=== PATIENT | female | born 1970 | race Caucasian/White ===

== ENCOUNTER 2016-09-26 16:44 | Emergency (ER) | payer OTHER ==
[2016-09-26] MEDS ORDERED: IPRATROPIUM-ALBUTEROL 3 ML NEB INHALATION STA ×2 (17:17→18:46)
--- NOTE | 2016-09-26 17:20 | ED ---
URI HPI - General Chief Complaint: Upper Respiratory Infection Stated Complaint: difficulty breathing Time Seen by Provider: 09/26/16 16:59 Source: patient, RN notes reviewed Mode of arrival: ambulatory Limitations: no limitations - History of Present Illness Initial Comments: Patient is a 46-year-old female presents to the emergency room for evaluation of coughing and congestion. Patient states she has a history of seasonal ALLERGIES and asthma. Patient states yesterday she began feeling sluggish. Patient states she developed a productive cough. Patient states every time she coughs she feels short of breath. Patient denies smoking. Patient states that she uses an inhaler which helps improve her symptoms. Patient denies any fevers or chills. Patient denies receiving her influenza vaccine this year. Patient denies chest pain. Patient denies headache, throat pain, ear pain. Patient denies nausea or vomiting. - Related Data Home Medications Medication Instructions Recorded Confirmed Hydrochlorothiazide 25 mg PO DAILY 09/02/15 09/26/16 Albuterol Inhaler [Ventolin Hfa 2 puff INHALATION RT-QID PRN 01/31/16 09/26/16 Inhaler] Ergocalciferol (Vitamin D2) 50,000 unit PO Q30D 01/31/16 09/26/16 [Drisdol] Garcinia 2 tab PO DAILY 01/31/16 09/26/16 Lisinopril [Zestril] 20 mg PO DAILY 09/26/16 09/26/16 Previous Rx's Medication Instructions Recorded predniSONE 40 mg PO DAILY 4 Days 09/26/16 Allergies Allergy/AdvReac Type Severity Reaction Status Date / Time No Known Allergies Allergy Verified 09/26/16 17:12 Review of Systems ROS Statement: Those systems with pertinent positive or pertinent negative responses have been documented in the HPI. ROS Other: All systems not noted in ROS Statement are negative. Past Medical History Past Medical History: Asthma, Chest Pain / Angina, Hypertension, Osteoarthritis (OA) Additional Past Medical History / Comment(s): occ "flutter" in chest, urinary leakage, History of Any Multi-Drug Resistant Organisms: None Reported Past Surgical History: Appendectomy, Hysterectomy Additional Past Surgical History / Comment(s): D&C x 2 Past Anesthesia/Blood Transfusion Reactions: Motion Sickness, Postoperative Nausea & Vomiting (PONV) Past Psychological History: Anxiety Smoking Status: Former smoker Past Alcohol Use History: Occasional Additional Past Alcohol Use History / Comment(s): quit smoking 20yrs ago,smoked for 8 yrs-< 1PPD Past Drug Use History: Marijuana - Past Family History Mother Family Medical History: No Reported History General Exam - General Exam Comments Initial Comments: Sitting in exam room in no acute distress. Limitations: no limitations General appearance: alert, in no apparent distress Head exam: Present: atraumatic, normocephalic, normal inspection Eye exam: Present: normal appearance ENT exam: Present: normal exam Neck exam: Present: normal inspection Respiratory exam: Present: wheezes (Diffuse wheezing). Absent: respiratory distress Cardiovascular Exam: Present: regular rate, normal rhythm, normal heart sounds Extremities exam: Present: normal inspection Back exam: Present: normal inspection Neurological exam: Present: alert, oriented X3, CN II-XII intact, normal gait Psychiatric exam: Present: normal affect, normal mood Skin exam: Present: warm, dry, intact, normal color. Absent: rash Course Vital Signs 09/26/16 09/26/16 09/26/16 16:46 17:31 17:37 Temperature 99.0 F Pulse Rate 98 96 98 Respiratory 22 Rate Blood Pressure 171/91 O2 Sat by Pulse 100 Oximetry 09/26/16 09/26/16 09/26/16 19:00 19:11 19:18 Temperature 98.4 F Pulse Rate 92 96 79 Respiratory 16 Rate Blood Pressure 120/70 O2 Sat by Pulse 98 Oximetry Medical Decision Making - Medical Decision Making Patient is a 46-year-old female presents to the emergency room for evaluation of cough and congestion. Patient states she is feeling better after breathing treatment given. Chest x-ray shows no acute findings. Influenza negative. Patient was wheezing on exam. We'll send patient home on prednisone and advised her to follow-up with her primary care provider in 24-48 hours for reevaluation. Patient states she understands everything that was discussed with her. Return parameters discussed. - Lab Data Lab Results 09/26/16 Range/Units 17:14 Influenza Type A RNA Not Detected (Not Detectd) Influenza Type B (PCR) Not Detected (Not Detectd) - Radiology Data Radiology results: report reviewed, image reviewed Disposition Clinical Impression: Upper respiratory infection Disposition: HOME SELF-CARE Condition: Good Instructions: Upper Respiratory Infection (ED) Additional Instructions: Take medications as directed. Please follow up with primary care provider in 1- 2 days. If any new symptom arises or symptoms worsen, return to ER as soon as possible. Prescriptions: predniSONE 40 mg PO DAILY 4 Days Referrals: Rinku Hernandez MD [Primary Care Provider] - 1-2 days Time of Disposition: 18:41
--- NOTE | 2016-09-26 17:55 | XR ---
EXAMINATION TYPE: XR chest 2V DATE OF EXAM: 09/26/2016 5:50 PM COMPARISON: NONE HISTORY: Pain TECHNIQUE: Frontal and lateral views of the chest are obtained. FINDINGS: There is no focal air space opacity, pleural effusion, or pneumothorax seen. The cardiac silhouette size is within normal limits. The osseous structures are intact. IMPRESSION: No acute cardiopulmonary process.
[2016-09-26] MEDS ORDERED: predniSONE 20 MG TAB PO STA (18:42)
[2016-09-26 19:20] VITALS: BP 120/70; PULSE 79; RESP 16; TEMP 98.4
== END 2016-09-26 19:18 | disposition home or self-care (01) ==
LOC: EC 16:44
DX: J06.9 Acute upper respiratory infection, unspecified (principal); R06.02 Shortness of breath; I10 Essential (primary) hypertension; Z87.891 Personal history of nicotine dependence; Z79.899 Other long term (current) drug therapy
CPT/HCPCS: 94640 ×2; 87502; 71020; 99284; J7512

== ENCOUNTER → 2017-07-20 | Outpatient (CLI) | payer OTHER | END | disposition home or self-care (01) | LOC: LABWHC1 14:02 | PROVIDERS: ATTEND Family Medicine | DX: R07.9 Chest pain, unspecified (principal) | CPT/HCPCS: 36415; 85379 ==

== ENCOUNTER → 2018-01-15 | Outpatient (CLI) | payer OTHER ==
--- NOTE | 2018-01-15 12:09 | US ---
EXAMINATION TYPE: US thyroid st tissue head/neck DATE OF EXAM: 01/15/2018 COMPARISON: NONE CLINICAL HISTORY: E07.9 Enlarged Thyroid. Enlarged thyroid per patient's physician, dysphagia GLAND SIZE: Right Lobe: 5.2 x 1.5 x 2.0 cm Overall Parenchyma: homogenous Left Lobe: 4.9 x 1.5 x 1.6 cm Overall Parenchyma: homogeneous Isthmus Thickness: 0.4 cm NODULES RIGHT: # of nodules measured on right: 2 1. 0.6 X 0.4 x 0.7 cm hypoechoic mixed nodule at the upper pole with well-defined margins. This nod ule is wider than tall and shows no intranodular vascularity. Prior size: no previous 2. 0.4 X 0.3 x 0.5 cm hypoechoic mixed nodule at the mid pole with well-defined margins. This nodule is wider than tall and shows no intranodular vascularity. Prior size: no previous LEFT: # of nodules measured on left: 0 ISTHMUS: # of nodules measured in the isthmus: 1 1. 1.2 X 0.7 x 1.3 cm hypoechoic mixed nodule with well-defined margins. This nodule is wider than tall and shows no intranodular vascularity. Prior size: no previous Bilateral neck scanned, no evidence of lymphadenopathy. IMPRESSION: Subcentimeter right thyroid nodules and 1.3 cm isthmic thyroid nodule emanating overall enlarged mult inodular goiter. Surveillance is recommended, particularly for the isthmic nodule as this approaches size criteria for percutaneous fine-needle aspiration.
== END | disposition home or self-care (01) ==
LOC: RADUSWWP 11:02
PROVIDERS: ATTEND Family Medicine
DX: E04.2 Nontoxic multinodular goiter (principal)
CPT/HCPCS: 76536

== ENCOUNTER → 2018-09-05 | Outpatient (CLI) | payer OTHER ==
--- NOTE | 2018-09-06 10:54 | MM ---
Reason for exam: screening (asymptomatic). Last mammogram was performed 3 years and 1 month ago. History: Took hormonal contraceptives for 10 years. Physical Findings: A clinical breast exam by your physician is recommended on an annual basis and results should be correlated with mammographic findings. MG Screening Mammo w CAD Bilateral CC and MLO view(s) were taken. Prior study comparison: August 04, 2015, bilateral MG screening mammo w CAD. January 11, 2012, [facility] DIGITAL LEFT BREAST MAMMOGRAM w/CAD. The breast tissue is heterogeneously dense. This may lower the sensitivity of mammography. There are two 3mm groups of calcifications in the central upper left breast at middle depth. These appear new. No suspicious abnormality in the right. ASSESSMENT: Incomplete: need additional imaging evaluation, BI-RAD 0 RECOMMENDATION: Special view mammogram of the left breast. [facility] will attempt to contact patient to return for supplemental views.
== END | disposition home or self-care (01) ==
LOC: RADMAMWWP 09:42
PROVIDERS: ATTEND Family Medicine
DX: Z12.31 Encounter for screening mammogram for malignant neoplasm of breast (principal)
CPT/HCPCS: 77067

== ENCOUNTER → 2018-09-12 | Outpatient (CLI) | payer OTHER ==
--- NOTE | 2018-09-13 08:49 | MM ---
Reason for exam: additional evaluation requested from abnormal screening. Last mammogram was performed less than 1 month ago. History: Took hormonal contraceptives for 10 years. Physical Findings: Nurse did not find any significant physical abnormalities on exam. MG Work Up Mamm w CAD LT CC with magnification, LM with magnification, and LM view(s) were taken of the left breast. Prior study comparison: September 05, 2018, bilateral MG screening mammo w CAD. August 04, 2015, bilateral MG screening mammo w CAD. The breast tissue is heterogeneously dense. This may lower the sensitivity of mammography. Finding: There are indetermediate heterogeneous, grouped/clustered calcifications in the middle position of the left breast, the more posterior group of calcifications layers on additional views. These results were verbally communicated with the patient and result sheet given to the patient on 09/12/18. ASSESSMENT: Suspicious, BI-RAD 4 RECOMMENDATION: Stereotactic core biopsy of the left breast. Called Dr. Hernandez with mammographic findings and has scheduled an appointment for the patient for 10/03/18 at 12:[address] Amos. Biopsy scheduled for 10/10/18. PRELIMINARY REPORT CALLED AND FAXED TO DR. AMOS ON 09/13/18.
== END | disposition home or self-care (01) ==
LOC: RADMAMWWP 14:54
PROVIDERS: ATTEND Family Medicine
DX: R92.8 Other abnormal and inconclusive findings on diagnostic imaging of breast (principal)
CPT/HCPCS: 77065

== ENCOUNTER → 2019-08-26 | Outpatient (CLI) | payer OTHER ==
--- NOTE | 2019-08-26 13:08 | XR ---
Abdomen HISTORY: Preop for UGI, recurrent UTI a gross hematuria, pain Retained contrast material is present within the colon. Lung bases are clear. Exam rescheduled by radiologist due to retained contrast.
== END | disposition home or self-care (01) ==
LOC: RADFLMAIN 09:22
PROVIDERS: ATTEND Family Medicine
DX: R10.84 Generalized abdominal pain (principal)
CPT/HCPCS: 74018

== ENCOUNTER 2019-09-02 20:53 | Emergency (ER) | payer OTHER ==
[2019-09-02] MEDS ORDERED: SODIUM CHLORIDE 0.9% 1,000 ML IV STA (23:07)
[2019-09-02] MEDS ORDERED: ASPIRIN 81 MG PO STA (23:07)
[2019-09-02 23:35] LABS: Appearance,Urine Clear (Clear); Bilirubin,Urine Negative (Negative); Blood,Urine Negative (Negative); Color,Urine Light Yellow; Glucose,Urine (UA) Negative (Negative); Ketones,Urine Negative (Negative); Protein,Urine Negative (Negative); Specific Gravity,Urine 1.005 (1.001-1.035); Urobilinogen,Urine <2.0 mg/dL (<2.0)
[2019-09-02 23:36] LABS: Leukocyte Esterase,Urine Negative (Negative); Nitrite,Urine Negative (Negative)
--- NOTE | 2019-09-02 23:37 | XR ---
EXAMINATION TYPE: XR chest 2V DATE OF EXAM: 09/02/2019 COMPARISON: 09/26/2016 HISTORY: Chest pain TECHNIQUE: FINDINGS: Heart and mediastinum are normal. Lungs are clear. Diaphragm is normal. Bony thorax appears normal. IMPRESSION: Normal chest. No change.
[2019-09-02] MEDS ORDERED: ACETAMINOPHEN TAB 325 MG TAB PO STA (23:49)
[2019-09-02 23:59] LABS: Basophils % (A) 0 %; Eosinophils # (A) 0.1 k/uL (0-0.7); Eosinophils % (A) 1 %; HCT 39.2 % (34.0-46.0); HGB 13.2 gm/dL (11.4-16.0); Lymphocytes # (A) 1.1 k/uL (1.0-4.8); Lymphocytes % (A) 11 %; MCH 30.5 pg (25.0-35.0); MCHC 33.6 g/dL (31.0-37.0); MCV 90.7 fL (80.0-100.0); Mean Platelet Volume 7.6; Monocytes # (A) 0.3 k/uL (0-1.0); Monocytes % (A) 3 %; Neutrophils # (A) 9.1 k/uL (1.3-7.7); Neutrophils % (A) 85 %; Platelet Count 255 k/uL (150-450); RBC 4.33 m/uL (3.80-5.40); RDW 13.1 % (11.5-15.5); WBC 10.7 k/uL (3.8-10.6)
--- NOTE | 2019-09-03 00:07 | ED ---
General Adult HPI - General Chief complaint: Abdominal Pain Stated complaint: chest & back pain Time Seen by Provider: 09/02/19 22:53 Source: patient, RN notes reviewed, old records reviewed Mode of arrival: ambulatory Limitations: no limitations - History of Present Illness Initial comments: 49-year-old female patient with past history significant for asthma, hypertension, presents in ED with chief complaint of chest pain. Patient reports that this morning she began experiencing substernal chest pain while she was at work. Reports this was a sharp pain. Does report that was slightly pleuritic in nature. Reports that at this time patient is pain free. Denies any shortness of breath this time. Patient has had recent evaluations for abdominal discomfort, hematuria, denies any acute complaints in regards that at this time. Denies any other complaints. Systemic: Pt denies fatigue, fever/chills, rash. Pt denies weakness, night sweats, weight loss. Neuro: Pt denies headache, visual disturbances, syncope or pre-syncope. HEENT: Pt denies ocular discharge or irritation, otalgia, rhinorrhea, pharyngitis or notable lymphadenopathy. Cardiopulmonary: Pt denies chest pain, SOB, heart palpitations, dyspnea on exertion. Abdominal/GI: Pt denies abdominal pain, n/v/d. : Pt denies dysuria, burning w/ urination, frequency/urgency. Denies new onset urinary or bowel incontinence. MSK: Pt denies myalgia, loss of strength or function in extremities. Neuro: Pt denies new onset weakness, paresthesias. - Related Data Home Medications Medication Instructions Recorded Confirmed Hydrochlorothiazide 25 mg PO DAILY 09/02/15 09/26/16 Albuterol Inhaler [Ventolin Hfa 2 puff INHALATION RT-QID PRN 01/31/16 09/26/16 Inhaler] Ergocalciferol (Vitamin D2) 50,000 unit PO Q30D 01/31/16 09/26/16 [Drisdol] Garcinia 2 tab PO DAILY 01/31/16 09/26/16 Lisinopril [Zestril] 20 mg PO DAILY 09/26/16 09/26/16 Previous Rx's Medication Instructions Recorded predniSONE [Deltasone] 40 mg PO DAILY 4 Days tab 09/26/16 Allergies Allergy/AdvReac Type Severity Reaction Status Date / Time No Known Allergies Allergy Verified 09/26/16 17:12 Review of Systems ROS Statement: Those systems with pertinent positive or pertinent negative responses have been documented in the HPI. ROS Other: All systems not noted in ROS Statement are negative. Past Medical History Past Medical History: Asthma, Chest Pain / Angina, Hypertension, Osteoarthritis (OA) Additional Past Medical History / Comment(s): occ "flutter" in chest, urinary leakage, History of Any Multi-Drug Resistant Organisms: None Reported Past Surgical History: Appendectomy, Hysterectomy Additional Past Surgical History / Comment(s): D&C x 2 Past Anesthesia/Blood Transfusion Reactions: Motion Sickness, Postoperative Nausea & Vomiting (PONV) Past Psychological History: Anxiety Smoking Status: Former smoker Past Alcohol Use History: Occasional Past Drug Use History: Marijuana - Past Family History Mother Family Medical History: No Reported History General Exam - General Exam Comments Initial Comments: Constitutional: NAD, AOX3, Pt has pleasant affect. HEENT: NC/AT, trachea midline, neck supple, no lymphadenopathy. Posterior pharynx non erythematous, without exudates. External ears appear normal, without discharge. Mucous membranes moist. Eyes PERRLA, EOM intact. There is no scleral icterus. No pallor noted. Cardiopulmonary: RRR, no murmurs, rubs or gallops, no JVD noted. Lungs CTAB in a nterior and posterior medina. No peripheral edema. Abdominal exam: Abdomen soft and non-distended. Abdomen non-tender to palpation in all 4 quadrants. Bowel sounds active in LLQ. No hepatosplenomegaly. No ecchymosis Neuro: CN II-XII grossly intact. No nuchal rigidity. No raccon eyes, no jenkins sign, no hemotympanum. No cervical spinal tenderness. MSK: No posterior calf tenderness bilaterally, homans sign negative bilaterally. Posterior tibialis and radial pulse +2 bilaterally. Sensation intact in upper and lower extremities. Full active ROM in upper and lower extremities, 5/5 stregnth. Limitations: no limitations Course Vital Signs 09/02/19 09/03/19 09/03/19 21:01 00:41 01:24 Temperature 99.7 F H Pulse Rate 89 76 75 Respiratory 18 16 18 Rate Blood Pressure 138/88 141/94 129/88 O2 Sat by Pulse 98 98 96 Oximetry Medical Decision Making - Medical Decision Making 49-year-old female patient with past history significant for asthma, hypertension, presents in ED with chief complaint of chest pain. Patient reports that this morning she began experiencing substernal chest pain while she was at work. Reports this was a sharp pain. Does report that was slightly pleuritic in nature. Reports that at this time patient is pain free. Denies any shortness of breath this time. Patient has had recent evaluations for abdominal discomfort, hematuria, denies any acute complaints in regards that at this time. Denies any other complaints. Patient will signs are stable, afebrile. Physical exam demonstrate acute pathology. Laboratory investigations revealed mild leukocytosis of 10.7. D-dimer is elevated. Troponin negative. Urine negative. Influenza negative. EKG displayed S1 Q3 T3. On repeat evaluation patient reports now that her discomfort she is experiencing was more epigastric region. CT chest angiography for PE was obtained. Displayed no acute process. Thoracic aorta is intact. Patient does report that she has an appointment with a dry cleaning counter clerk on for her abdominal complaints which are somewhat chronic in nature. Patient recently had a negative CT abdomen and pelvis without contrast on 08/25. Patient is asymptomatic at time of discharge. Patient discharged to follow up with primary care provider tomorrow and will return to ER if condition worsens. Case discussed with Dr. Valiente. - Lab Data Result diagrams: 09/02/19 23:37 09/02/19 23:37 Lab Results 09/02/19 09/02/19 09/02/19 Range/Units 22:45 23:37 23:37 WBC 10.7 H (3.8-10.6) k/uL RBC 4.33 (3.80-5.40) m/uL Hgb 13.2 (11.4-16.0) gm/dL Hct 39.2 (34.0-46.0) % MCV 90.7 (80.0-100.0) fL MCH 30.5 (25.0-35.0) pg MCHC 33.6 (31.0-37.0) g/dL RDW 13.1 (11.5-15.5) % Plt Count 255 (150-450) k/uL Neutrophils % 85 % Lymphocytes % 11 % Monocytes % 3 % Eosinophils % 1 % Basophils % 0 % Neutrophils # 9.1 H (1.3-7.7) k/uL Lymphocytes # 1.1 (1.0-4.8) k/uL Monocytes # 0.3 (0-1.0) k/uL Eosinophils # 0.1 (0-0.7) k/uL Basophils # 0.0 (0-0.2) k/uL PT (9.0-12.0) sec INR (<1.2) APTT (22.0-30.0) sec D-Dimer (<0.60) mg/L FEU Sodium 135 L (137-145) mmol/L Potassium 3.5 (3.5-5.1) mmol/L Chloride 99 (98-107) mmol/L Carbon Dioxide 27 (22-30) mmol/L Anion Gap 9 mmol/L BUN 13 (7-17) mg/dL Creatinine 0.51 L (0.52-1.04) mg/dL Est GFR (CKD-EPI)AfAm >90 (>60 ml/min/1.73 sqM) Est GFR (CKD-EPI)NonAf >90 (>60 ml/min/1.73 sqM) Glucose 97 (74-99) mg/dL Calcium 9.1 (8.4-10.2) mg/dL Magnesium 1.9 (1.6-2.3) mg/dL Total Bilirubin 0.6 (0.2-1.3) mg/dL AST 26 (14-36) U/L ALT 19 (4-34) U/L Alkaline Phosphatase 82 (38-126) U/L Troponin I (0.000-0.034) ng/mL Total Protein 7.4 (6.3-8.2) g/dL Albumin 4.5 (3.5-5.0) g/dL Urine Color Light Yellow Urine Appearance Clear (Clear) Urine pH 6.0 (5.0-8.0) Ur Specific [place] 1.005 (1.001-1.035) Urine Protein Negative (Negative) Urine Glucose (UA) Negative (Negative) Urine Ketones Negative (Negative) Urine Blood Negative (Negative) Urine Nitrite Negative (Negative) Urine Bilirubin Negative (Negative) Urine Urobilinogen <2.0 (<2.0) mg/dL Ur Leukocyte Esterase Negative (Negative) Influenza Type A RNA (Not Detectd) Influenza Type B (PCR) (Not Detectd) 09/02/19 09/02/19 09/02/19 Range/Units 23:37 23:37 23:50 WBC (3.8-10.6) k/uL RBC (3.80-5.40) m/uL Hgb (11.4-16.0) gm/dL Hct (34.0-46.0) % MCV (80.0-100.0) fL MCH (25.0-35.0) pg MCHC (31.0-37.0) g/dL RDW (11.5-15.5) % Plt Count (150-450) k/uL Neutrophils % % Lymphocytes % % Monocytes % % Eosinophils % % Basophils % % Neutrophils # (1.3-7.7) k/uL Lymphocytes # (1.0-4.8) k/uL Monocytes # (0-1.0) k/uL Eosinophils # (0-0.7) k/uL Basophils # (0-0.2) k/uL PT 9.8 (9.0-12.0) sec INR 0.9 (<1.2) APTT 25.2 (22.0-30.0) sec D-Dimer 0.92 H (<0.60) mg/L FEU Sodium (137-145) mmol/L Potassium (3.5-5.1) mmol/L Chloride (98-107) mmol/L Carbon Dioxide (22-30) mmol/L Anion Gap mmol/L BUN (7-17) mg/dL Creatinine (0.52-1.04) mg/dL Est GFR (CKD-EPI)AfAm (>60 ml/min/1.73 sqM) Est GFR (CKD-EPI)NonAf (>60 ml/min/1.73 sqM) Glucose (74-99) mg/dL Calcium (8.4-10.2) mg/dL Magnesium (1.6-2.3) mg/dL Total Bilirubin (0.2-1.3) mg/dL AST (14-36) U/L ALT (4-34) U/L Alkaline Phosphatase (38-126) U/L Troponin I <0.012 (0.000-0.034) ng/mL Total Protein (6.3-8.2) g/dL Albumin (3.5-5.0) g/dL Urine Color Urine Appearance (Clear) Urine pH (5.0-8.0) Ur Specific [place] (1.001-1.035) Urine Protein (Negative) Urine Glucose (UA) (Negative) Urine Ketones (Negative) Urine Blood (Negative) Urine Nitrite (Negative) Urine Bilirubin (Negative) Urine Urobilinogen (<2.0) mg/dL Ur Leukocyte Esterase (Negative) Influenza Type A RNA Not Detected (Not Detectd) Influenza Type B (PCR) Not Detected (Not Detectd) - EKG Data -: EKG Interpreted by Me (and Dr. Valiente) EKG Comments: Ventricular rate 90, IN interval 144, QRS 88, QT/QTC 374 since 457. Normal sinus rhythm, T-wave abnormality, to return for ischemia. Normal EKG. S1 Q3 T3 is noted. Disposition Clinical Impression: Abdominal pain, Atypical chest pain Disposition: HOME SELF-CARE Condition: Stable Instructions (If sedation given, give patient instructions): Abdominal Pain (ED) Additional Instructions: Follow-up with primary care provider and dry cleaning counter clerk as scheduled. Return to ER if condition worsens in any way. Is patient prescribed a controlled substance at d/c from ED?: No Referrals: Rinku Hernandez MD [Primary Care Provider] - 1-2 days
[2019-09-03 00:15] LABS: INR 0.9 (<1.2); Partial Thromboplastin Time 25.2 sec (22.0-30.0); Prothrombin Time 9.8 sec (9.0-12.0)
[2019-09-03 00:18] LABS: ALT 19 U/L (4-34); AST 26 U/L (14-36); African American GFR (CKD) >90 (>60 ml/min/1.73 sqM); Albumin 4.5 g/dL (3.5-5.0); Alkaline Phosphatase 82 U/L (38-126); Anion Gap 9 mmol/L; Blood Urea Nitrogen 13 mg/dL (7-17); Calcium 9.1 mg/dL (8.4-10.2); Carbon Dioxide 27 mmol/L (22-30); Chloride 99 mmol/L (98-107); Glucose 97 mg/dL (74-99); Magnesium 1.9 mg/dL (1.6-2.3); Non-African American GFR(CKD) >90 (>60 ml/min/1.73 sqM); Potassium 3.5 mmol/L (3.5-5.1); Sodium 135 mmol/L (137-145); Total Bilirubin 0.6 mg/dL (0.2-1.3); Total Protein 7.4 g/dL (6.3-8.2)
[2019-09-03 00:41] LABS: D-Dimer 0.92 mg/L FEU (<0.60)
--- NOTE | 2019-09-03 01:28 | CT ---
EXAMINATION TYPE: CT chest angio for PE DATE OF EXAM: 09/03/2019 COMPARISON: None HISTORY: Patient presents with elevated d-dimer. CT DLP: 433.7 mGycm Automated exposure control for dose reduction was used. CONTRAST: Performed with IV Contrast, patient injected with 60mL mL of Isovue 370. There are 3-D post processed images. Mediastinum is normal. Thoracic aorta is intact. There is no aneurysm or dissection. There are no hil ar masses. Heart size is normal. There is no pericardial effusion. There is no pleural effusion. There is normal contrast opacification of the pulmonary arteries. There are no filling defects. Thoracic vertebra have normal alignment. There is no compression fracture. Bony thorax is intact. Upp er abdominal soft tissues appear intact. IMPRESSION: Negative exam. No evidence of pulmonary embolism. No evidence of any significant lung disease.
[2019-09-03 01:30] VITALS: RESP 18
[2019-09-03 03:51] VITALS: BP 106/62; PULSE 87; TEMP 98.6
== END 2019-09-03 03:06 | disposition home or self-care (01) ==
LOC: EC 20:53
DX: R07.89 Other chest pain (principal); R10.9 Unspecified abdominal pain; D72.829 Elevated white blood cell count, unspecified; R79.89 Other specified abnormal findings of blood chemistry; I10 Essential (primary) hypertension; J45.909 Unspecified asthma, uncomplicated; I25.2 Old myocardial infarction; Z79.51 Long term (current) use of inhaled steroids; Z79.899 Other long term (current) drug therapy; Z86.79 Personal history of other diseases of the circulatory system; Z87.891 Personal history of nicotine dependence
CPT/HCPCS: 36415; 71046; 71275; 80053; 81003; 83735; 84484; 85025; 85379; 85610; 85730; 87502; 93005; 96360; 96361; 99285

== ENCOUNTER → 2019-09-04 | Outpatient (CLI) | payer OTHER ==
--- NOTE | 2019-09-04 13:25 | FL ---
EXAMINATION: Upper GI examination DATE: 07/04/2020 CLINICAL INDICATION: 49 year-old male right upper quadrant and epigastric pain for one month. COMPARISON: Correlation CT 08/25/2019 Total Fluoroscopy Time: 2 minutes Total images: 38 FINDINGS: The esophagus has a normal course, caliber, motility and mucosa. No hiatal hernia is identified. There is a single episode of mild gastroesophageal reflux when the patient is supine. This could not be replicated with Valsalva or positional maneuvers. The stomach demonstrates a few small, smooth round, less than 1 cm filling defects along the gastric body that could represent air bubbles from the effervescent granules or small hyperplastic polyps. Otherwise, the stomach and duodenum are free of any persistent filling defect and demonstrate a cb l mucosal pattern. No ulcer is identified. IMPRESSION: 1. A single spontaneous episode of very mild gastroesophageal reflux that could not be replicated wit h Valsalva or positional maneuvers. 2. There may be a few benign hyperplastic polyps within the gastric body that can be seen with chroni c gastritis. No ulcer is identified.
== END | disposition home or self-care (01) ==
LOC: RADUSWWP 08:58
PROVIDERS: ATTEND Family Medicine
DX: K21.9 Gastro-esophageal reflux disease without esophagitis (principal)
CPT/HCPCS: 74246

== ENCOUNTER → 2021-11-08 | Outpatient (CLI) | payer OTHER ==
--- NOTE | 2021-11-08 13:20 | CT ---
EXAMINATION TYPE: CT sinus wo con DATE OF EXAM: 11/08/2021 COMPARISON: CT facial bones October 01, 2015 HISTORY: Chronic sinusitis, daily bloody noses, deviated septum CT DLP: 586.20 mGycm. Automated Exposure Control for Dose Reduction was Utilized. TECHNIQUE: CT scan of the sinuses is performed without contrast, axial images are obtained, coronal r eformatted images are also reviewed. FINDINGS: Mild mucosal thickening involving the superior and inferior aspect of the left maxillary si nus. Some polyp formation or mucosal thickening in the posterior right ethmoid sinus. No suspicious o pacification or air-fluid levels in the other paranasal sinuses The ostiomeatal complex is patent ion aterally on coronal image 16. Nasal septum remains stable and slightly deviated to right of midline. Visualized portion of mastoid air cells show no abnormal opacification. The globes are intact bilate rally. IMPRESSION: Mild chronic paranasal sinus disease. No acute sinusitis.
== END | disposition home or self-care (01) ==
LOC: RADCTMAIN 12:37
PROVIDERS: ATTEND Otolaryngology
DX: J32.4 Chronic pansinusitis (principal)
CPT/HCPCS: 70486

== ENCOUNTER → 2023-05-22 | Outpatient (CLI) | payer OTHER ==
--- NOTE | 2023-05-22 12:56 | XR ---
EXAMINATION TYPE: XR chest 2V DATE OF EXAM: 05/22/2023 COMPARISON: 09/02/2019 TECHNIQUE: PA and lateral views submitted. HISTORY: Cough FINDINGS: The lungs are clear and there is no pneumothorax, pleural effusion, or focal pneumonia. Heart size normal and no overt failure. Osseous structures demonstrate hypertrophic and degenerative changes of the spine. AC joint arthropathy. Hyperinflation compatible COPD. IMPRESSION: 1. No acute process.
== END | disposition home or self-care (01) ==
LOC: RADXRMAIN 12:26
PROVIDERS: ATTEND Family Medicine
DX: J18.9 Pneumonia, unspecified organism (principal)
CPT/HCPCS: 71046

== ENCOUNTER → 2024-10-03 | Outpatient (CLI) | payer OTHER ==
[2024-10-03 14:59] LABS: Basophils # (A) 0.05 X 10*3/uL (0.00-0.10); Basophils % (A) 0.7 %; Eosinophils # (A) 0.16 X 10*3/uL (0.04-0.35); Eosinophils % (A) 2.2 %; HCT 42.5 % (37.2-46.3); HGB 13.9 g/dL (12.0-15.0); Lymphocytes # (A) 2.78 X 10*3/uL (0.90-5.00); Lymphocytes % (A) 37.4 %; MCH 28.4 pg (27.0-32.0); MCHC 32.7 g/dL (32.0-37.0); MCV 86.9 FL (80.0-97.0); Mean Platelet Volume 9.3 FL (9.5-12.2); Monocytes # (A) 0.43 X 10*3/uL (0.20-1.00); Monocytes % (A) 5.8 %; NRBC Per 100 WBC 0 X 10*3/uL (0.00-0.01); Neutrophils # (A) 3.95 X 10*3/uL (1.80-7.70); Neutrophils % (A) 53.1 %; Platelet Count 290 X 10*3/uL (140-440); RBC 4.89 X 10*6/uL (4.10-5.20); RDW 13.3 % (11.5-14.5); WBC 7.43 X 10*3/uL (4.50-10.00)
[2024-10-03 15:24] LABS: Blood Urea Nitrogen 14.5 mg/dL (9.0-27.0); Carbon Dioxide 23.6 mmol/L (21.6-31.8); Chloride 104 mmol/L (96-109); Chol/HDL Ratio 3.93 Ratio; Glucose 87 mg/dL (70-110); Iron 94 UG/DL (50-170); LDL Cholesterol,Calculated 154.1 mg/dL (0.0-131.0); Potassium 4.2 mmol/L (3.5-5.5); Sodium 139 mmol/L (135-145)
[2024-10-03 15:25] LABS: ALT 22 U/L (8-44); AST 18 U/L (13-35); Albumin 4.4 g/dL (3.8-4.9); Albumin/Globulin Ratio 1.52 Ratio (1.60-3.17); Alkaline Phosphatase 103 U/L (41-126); Calcium 9.2 mg/dL (8.7-10.3); Globulin 2.9 g/dL (1.6-3.3); Total Bilirubin 0.4 mg/dL (0.3-1.2); Total Protein 7.3 g/dL (6.2-8.2)
--- NOTE | 2024-10-03 16:06 | CA ---
Transthoracic Echo Report Name: Fouzia Nichols Age: 54 Gender: F : 1970 Exam Date: 10/03/2024 12:36 Exam Location: [place] [facility] Ht (in): 63 Wt (lb): 174 Ordering Physician: Jeffrey Santamaria MD Attending/Referring Phys: Jeffrey Santamaria MD Tapper Helper Kirsty Chavez RDCS Procedure CPT: Indications: I51.7 Cardiomegaly Cardiac Hx: Technical Quality: Fair Contrast 1: Total Dose (mL): Contrast 2: Total Dose (mL): MEASUREMENTS (Male / Female) Normal Values 2D ECHO LV Diastolic Diameter PLAX 4.3 cm 4.2 - 5.9 / 3.9 - 5.3 cm LV Systolic Diameter PLAX 2.7 cm IVS Diastolic Thickness 1.1 cm 0.6 - 1.0 / 0.6 - 0.9 cm LVPW Diastolic Thickness 1.2 cm 0.6 - 1.0 / 0.6 - 0.9 cm LV Relative Wall Thickness 0.5 LVOT Diameter 2.1 cm Aortic Root Diameter 2.8 cm LV Diastolic Volume MOD BP 109.5 cm??? 67 - 155 / 56 - 104 cm??? LV Systolic Volume MOD BP 46.3 cm??? 22 - 58 / 19 - 49 cm??? LV Ejection Fraction MOD BP 57.7 % >= 55 % LV Cardiac Index MOD BP 2426.6 cm???/min???m??? LV Diastolic Volume MOD 4C 110.1 cm??? LV Systolic Volume MOD 4C 46.0 cm??? LV Ejection Fraction MOD 4C 58.2 % LV Cardiac Index MOD 4C 2461.8 cm???/min???m??? LV Diastolic Length 4C 8.1 cm LV Systolic Length 4C 6.7 cm LV Diastolic Volume MOD 2C 108.7 cm??? LV Systolic Volume MOD 2C 43.6 cm??? LV Ejection Fraction MOD 2C 59.9 % LV Cardiac Index MOD 2C 2499.6 cm???/min???m??? LV Diastolic Length 2C 8.1 cm LV Systolic Length 2C 7.1 cm Ascending Aorta Diameter 3.3 cm DOPPLER AV Peak Velocity 140.1 cm/s AV Peak Gradient 7.9 mmHg AV Mean Velocity 98.8 cm/s AV Mean Gradient 4.3 mmHg AV Velocity Time Integral 29.2 cm LVOT Peak Velocity 98.6 cm/s LVOT Peak Gradient 3.9 mmHg LVOT Velocity Time Integral 21.1 cm LVOT Stroke Volume 72.7 cm??? LVOT Stroke Volume Index 39.9 ml/m??? LVOT Cardiac Index 2791.3 cm???/min???m??? AV Area Cont Eq vti 2.5 cm??? AV Area Cont Eq pk 2.4 cm??? Mitral E Point Velocity 59.9 cm/s Mitral A Point Velocity 82.6 cm/s Mitral E to A Ratio 0.7 MV Deceleration Time 196.5 ms MV E' Velocity 4.2 cm/s Mitral E to MV E' Ratio 14.4 PV Peak Velocity 93.0 cm/s PV Peak Gradient 3.5 mmHg FINDINGS Left Ventricle Left ventricular ejection fraction is estimated at 55-60 %. Mildly increased septal wall thickness. Mildly increased posterior wall thickness. Mildly increased left ventricular diastolic volume. No obvious regional wall motion abnormalities. Right Ventricle Normal right ventricular size and function. Unable to estimate the right ventricular systolic pressure. Right Atrium Normal right atrial size. Left Atrium Normal left atrial size. Mitral Valve Structurally normal mitral valve. No mitral stenosis, regurgitation or prolapse. Aortic Valve Aortic valve not well visualized. No aortic valve stenosis or regurgitation. Tricuspid Valve Structurally normal tricuspid valve. No tricuspid stenosis. Trace tricuspid regurgitation. Pulmonic Valve Pulmonic valve not well visualized. No pulmonic stenosis. No pulmonic regurgitation. Pericardium No pericardial effusion. Aorta Normal size aortic root and proximal ascending aorta. CONCLUSIONS Normal LV size and systolic function. No significant abnormality on the Doppler exam. No pericardial effusion Previewed by: Dr. Dave Palmer MD (Electronically Signed) Final Date: 03 October 2024 16:05
== END | disposition home or self-care (01) ==
LOC: RADECHMAIN 11:19
PROVIDERS: ATTEND Family Medicine
DX: J44.9 Chronic obstructive pulmonary disease, unspecified (principal); I51.7 Cardiomegaly; I10 Essential (primary) hypertension; E11.9 Type 2 diabetes mellitus without complications; Z79.899 Other long term (current) drug therapy
CPT/HCPCS: 80053; 80061; 82784; 83036; 83540; 84443; 85025; 93306